=== PATIENT | female | born 1955 | race Caucasian/White ===

== ENCOUNTER → 2017-05-31 | Outpatient (CLI) | payer BC | END | disposition home or self-care (01) | LOC: HKI 14:12 | DX: M23.8X2 Other internal derangements of left knee (principal); M23.8X1 Other internal derangements of right knee | CPT/HCPCS: 20610 ==

== ENCOUNTER → 2017-09-17 | Outpatient (CLI) | payer BC | END | disposition home or self-care (01) | LOC: HKI 13:24 | DX: M25.562 Pain in left knee (principal); M25.561 Pain in right knee; E11.8 Type 2 diabetes mellitus with unspecified complications | CPT/HCPCS: 20610 ==

== ENCOUNTER → 2017-09-24 | Outpatient (CLI) | payer BC | END | disposition home or self-care (01) | LOC: HKI 14:15 | DX: M17.11 Unilateral primary osteoarthritis, right knee (principal) | CPT/HCPCS: 20610 ==

== ENCOUNTER → 2018-01-22 | Outpatient (CLI) | payer BC | END | disposition home or self-care (01) | LOC: HKI 15:01 | DX: M17.12 Unilateral primary osteoarthritis, left knee (principal) | CPT/HCPCS: 20610 ==

== ENCOUNTER → 2018-02-07 | Outpatient (CLI) | payer BC | END | disposition home or self-care (01) | LOC: HKI 11:04 | DX: M17.11 Unilateral primary osteoarthritis, right knee (principal) | CPT/HCPCS: 20610 ==

== ENCOUNTER → 2018-05-10 | Outpatient (CLI) | payer BC | END | disposition home or self-care (01) | LOC: HKI 15:20 | DX: M17.11 Unilateral primary osteoarthritis, right knee (principal) | CPT/HCPCS: 20610 ==

== ENCOUNTER → 2018-08-19 | Outpatient (CLI) | payer BC | END | disposition home or self-care (01) | LOC: HKI 15:45 | DX: M17.11 Unilateral primary osteoarthritis, right knee (principal) | CPT/HCPCS: 20610; 73564-RT ==